=== PATIENT | male | born 1970 | race Caucasian/White ===

== ENCOUNTER 2017-12-04 08:38 | Emergency (ER) | payer OTHER ==
[~2017-12-04] VITALS: Ht 170.1 cm; Wt 90.7 kg
[~2017-12-04 08:38] MED LIST: ANUSOL-HC25 MG RC; CIPROFLOXACIN500 MG PO; DEXILANT60 M1 PO; FLAGYL500 MG PO; LEXAPRO5 MG PO; LIPITOR40 MG PO; METFORMIN500 MG PO; WELLBUTRIN100 MG PO; ZYRTEC5 MG PO
[2017-12-04] MEDS ORDERED: JARDIANCE10 MG PO (08:57)
[2017-12-04] MEDS ORDERED: GOOD NEIGHBOR M25 M1 PO (09:13)
== END 2017-12-04 09:28 | disposition home or self-care (01) ==
LOC: ED 08:38
DX: H81.11 Benign paroxysmal vertigo, right ear (principal); F17.200 Nicotine dependence, unspecified, uncomplicated; Z79.899 Other long term (current) drug therapy